=== PATIENT | male | born 1980 | race African-American/Black ===

== ENCOUNTER 2017-04-04 09:47 | Emergency (ER) | payer SELFPAY ==
--- NOTE | 2017-04-04 10:18 | RAD ---
CHEST 2 VIEWS: Date: 04/04/17 HISTORY: Cough and congestion. COMPARISON: 05/13/15. FINDINGS: The cardiac silhouette and pulmonary vasculature are unremarkable. Mediastinum is midline. There is n o confluent air space consolidation, pneumothorax, or pleural fluid evident. IMPRESSION: No active cardiopulmonary abnormalities are demonstrated. POS: [facility]
== END 2017-04-04 10:53 | disposition home or self-care (01) ==
LOC: ERS 09:47
DX: J30.9 Allergic rhinitis, unspecified (principal); Z71.6 Tobacco abuse counseling; F32.9 Major depressive disorder, single episode, unspecified; F17.210 Nicotine dependence, cigarettes, uncomplicated
CPT/HCPCS: 71046; 99406

== ENCOUNTER 2017-04-07 09:14 | Emergency (ER) | payer SELFPAY | END 2017-04-07 09:49 | disposition home or self-care (01) | LOC: ERS 09:14 | DX: R07.81 Pleurodynia (principal); R05 Cough; F32.9 Major depressive disorder, single episode, unspecified; F17.210 Nicotine dependence, cigarettes, uncomplicated | CPT/HCPCS: 93005 ==

== ENCOUNTER 2017-08-17 11:29 | Emergency (ER) | payer SELFPAY ==
[2017-08-17 12:18] LABS: #Eosinphils 0.2 thou/uL (0.0-0.7); #Lymphocytes 1.7 thou/uL (1.20-3.40); #Monocytes 0.6 thou/uL (0.11-0.59); #Neutrophils 3.5 thou/uL (1.40-6.50); %Basophils 0.5 % (0.0-1.0); %Eosinophils 2.9 % (0.0-10.0); %Lymphocytes 28.2 % (21.0-51.0); %Monocytes 9.8 % (0.0-10.0); %Neutrophils 58.7 % (42.0-75.0); Hemoglobin 14.7 g/dL (14.0-18.0); Mean Corpuscular HGB CONC 33.2 g/dL (32.0-36.0); Mean Corpuscular Hemoglobin 30.1 pg (27.0-31.0); Mean Corpuscular Volume 90.6 fl (80.0-94.0); Mean Platelet Volume 7.5 fL (7.4-10.4); Platelet Count 282 thou/uL (130-400); RBC Distribution Width 12.9 % (11.5-14.5); Red Blood Cell (RBC) Count 4.89 mill/uL (4.70-6.10)
--- NOTE | 2017-08-17 12:23 | RAD ---
PA AND LATERAL VIEWS CHEST: Date: 08/17/17 HISTORY: Chest pain. FINDINGS: Comparison made with exam of 04/04/17. The cardiomediastinum is normal. The lungs are expanded and clear. The bony thorax is normal. IMPRESSION: Normal exam. POS: [facility]
[2017-08-17 12:41] LABS: ALT (SGPT) 31 U/L (8-55); AST (SGOT) 29 U/L (5-34); Albumin 4.7 g/dL (3.5-5.0); Alkaline Phosphatase 65 U/L (40-150); Anion Gap 12 mmol/L (10-20); BUN (Urea Nitrogen) 8 mg/dL (8.9-20.6); Bilirubin, Total 0.5 mg/dL (0.2-1.2); CK (CPK) 260 U/L (30-200); Calc. Creatinine Clearance 0 mL/min (70-130); Calcium 9.9 mg/dL (7.8-10.44); Carbon Dioxide 27 mmol/L (22-29); Chloride 104 mmol/L (98-107); Estimated GFR-MDRD 88; Globulin 3.1 g/dL (2.4-3.5); Glucose 80 mg/dL (70-105); Potassium 4.3 mmol/L (3.5-5.1); Protein, Total 7.8 g/dL (6.0-8.3); Sodium 139 mmol/L (136-145)
[2017-08-17 12:45] LABS: CKMB 0.8 ng/mL (0-6.6); Troponin I Less than 0.010 ng/mL (< 0.028)
== END 2017-08-17 13:14 | disposition home or self-care (01) ==
LOC: ERS 11:29
DX: J06.9 Acute upper respiratory infection, unspecified (principal); I10 Essential (primary) hypertension; F32.9 Major depressive disorder, single episode, unspecified; F17.210 Nicotine dependence, cigarettes, uncomplicated
CPT/HCPCS: 36415; 71046; 80053; 82550; 82553; 83880; 84484; 85025; 93005

== ENCOUNTER 2017-11-22 13:03 | Emergency (ER) | payer SELFPAY ==
[2017-11-22 14:10] LABS: #Eosinphils 0.1 thou/uL (0.0-0.7); #Lymphocytes 1.5 thou/uL (1.20-3.40); #Monocytes 0.5 thou/uL (0.11-0.59); #Neutrophils 2.3 thou/uL (1.40-6.50); %Basophils 0.5 % (0.0-1.0); %Eosinophils 1.3 % (0.0-10.0); %Lymphocytes 33.4 % (21.0-51.0); %Monocytes 10.9 % (0.0-10.0); %Neutrophils 53.9 % (42.0-75.0); Hemoglobin 13.5 g/dL (14.0-18.0); Mean Corpuscular HGB CONC 34.2 g/dL (32.0-36.0); Mean Corpuscular Hemoglobin 31.4 pg (27.0-31.0); Mean Corpuscular Volume 91.7 fL (78.0-98.0); Mean Platelet Volume 7.3 fL (7.4-10.4); Platelet Count 280 thou/uL (130-400); RBC Distribution Width 12.8 % (11.5-14.5); Red Blood Cell (RBC) Count 4.31 mill/uL (4.70-6.10); White Blood Cell (WBC) Count 4.3 thou/uL (4.8-10.8)
[2017-11-22 14:34] LABS: ALT (SGPT) 21 U/L (8-55); AST (SGOT) 27 U/L (5-34); Albumin 4.5 g/dL (3.5-5.0); Alkaline Phosphatase 61 U/L (40-150); Anion Gap 16 mmol/L (10-20); BUN (Urea Nitrogen) 7 mg/dL (8.9-20.6); Bilirubin, Total 0.5 mg/dL (0.2-1.2); Calc. Creatinine Clearance 0 mL/min (70-130); Calcium 9.5 mg/dL (7.8-10.44); Carbon Dioxide 24 mmol/L (22-29); Chloride 102 mmol/L (98-107); Estimated GFR-MDRD 79; Glucose 79 mg/dL (70-105); Lipase 64 U/L (8-78); Potassium 4.2 mmol/L (3.5-5.1); Protein, Total 7.5 g/dL (6.0-8.3); Sodium 138 mmol/L (136-145)
[2017-11-22] MEDS ORDERED: Pantoprazole 40 MG VIAL ONE (15:55)
[2017-11-22] MEDS ORDERED: Ketorolac Tromethamine 30 MG/ML VIAL ONE (15:55)
[2017-11-22 16:24] LABS: Bilirubin Negative (Negative); Blood, Urine Negative (Negative); Clarity CLOUDY (Clear); Glucose, Urine (Dipstick) Negative (Negative); Leukocyte Negative (Negative); Nitrite Negative (Negative); Protein, Urine (Dipstick) Trace mg/dL (Neg-Trace); Specific Gravity, Urine 1.021 (1.002-1.036); Urobilinogen 0.2 mg/dL (0.2-1.0)
--- NOTE | 2017-11-22 17:23 | ULT ---
RIGHT UPPER QUADRANT ABDOMINAL ULTRASOUND: 11/22/17 COMPARISON: None. HISTORY: Right upper quadrant abdominal pain. TECHNIQUE: Multiplanar roberto scale and color doppler images were obtained in a right upper quadrant abdominal ult rasound. FINDINGS: The liver is normal in echogenicity without focal lesions or intrahepatic ductal dilatation. The gall bladder is partially contracted. There is a nonshadowing echogenic structure along the gallbladder wa ll which could represent a small polyp. There is no gallbladder wall thickening or pericholecystic fl uid. The common bile duct is normal measuring 4 mm. The visualized portions of the pancreas are unremarkable. The right kidney is normal in echogenicity without hydronephrosis or calculus and measures 10.3 cm in length. IMPRESSION: Possible small gallbladder polyp. POS: [facility]
== END 2017-11-22 17:34 | disposition home or self-care (01) ==
LOC: ERS 13:03
DX: R10.13 Epigastric pain (principal); I10 Essential (primary) hypertension; F32.9 Major depressive disorder, single episode, unspecified; F17.210 Nicotine dependence, cigarettes, uncomplicated
CPT/HCPCS: 36415; 76705; 80053; 81003; 83690; 85025; 96374; 96375; C9113; J1885

== ENCOUNTER 2018-05-17 09:14 | Emergency (ER) | payer SELFPAY ==
[2018-05-17 10:03] LABS: #Lymphocytes 1.5 thou/uL (1.20-3.40); #Monocytes 0.4 thou/uL (0.11-0.59); #Neutrophils 3.2 thou/uL (1.40-6.50); %Basophils 0.9 % (0.0-1.0); %Eosinophils 0.5 % (0.0-10.0); %Lymphocytes 29.4 % (21.0-51.0); %Monocytes 7.3 % (0.0-10.0); Hemoglobin 13.7 g/dL (14.0-18.0); Mean Corpuscular Hemoglobin 30.7 pg (27.0-31.0); Mean Corpuscular Volume 93.1 fL (78.0-98.0); Mean Platelet Volume 7.4 fL (7.4-10.4); Platelet Count 240 thou/uL (130-400); Red Blood Cell (RBC) Count 4.46 mill/uL (4.70-6.10); White Blood Cell (WBC) Count 5.1 thou/uL (4.8-10.8)
[2018-05-17 10:25] LABS: ALT (SGPT) 27 U/L (8-55); AST (SGOT) 27 U/L (5-34); Albumin 4.3 g/dL (3.5-5.0); Alkaline Phosphatase 55 U/L (40-150); Anion Gap 12 mmol/L (10-20); BUN (Urea Nitrogen) 9 mg/dL (8.9-20.6); Bilirubin, Total 0.8 mg/dL (0.2-1.2); Calc. Creatinine Clearance 0 mL/min (70-130); Calcium 9.2 mg/dL (7.8-10.44); Carbon Dioxide 26 mmol/L (22-29); Chloride 106 mmol/L (98-107); Estimated GFR-MDRD Greater than 90; Globulin 2.6 g/dL (2.4-3.5); Glucose 130 mg/dL (70-105); Lipase 35 U/L (8-78); Potassium 3.6 mmol/L (3.5-5.1); Protein, Total 6.9 g/dL (6.0-8.3); Sodium 140 mmol/L (136-145)
[2018-05-17 10:34] LABS: Bilirubin Negative (Negative); Blood, Urine Negative (Negative); Clarity CLEAR (Clear); Glucose, Urine (Dipstick) Negative (Negative); Leukocyte Negative (Negative); Nitrite Negative (Negative); Protein, Urine (Dipstick) Negative (Neg-Trace); Specific Gravity, Urine 1.021 (1.002-1.036); Urobilinogen 0.2 mg/dL (0.2-1.0); pH, Urine 5.5 (5.0-9.0)
[2018-05-17] MEDS ORDERED: Magnesium Citrate 300 ML BOT ONE (10:41)
--- NOTE | 2018-05-17 12:17 | RAD ---
KUB: HISTORY: Abdominal pain. FINDINGS: The bowel gas pattern is nonobstructive. No radiopaque calculi or significant bony findings. IMPRESSION: Unremarkable KUB. POS: [facility]
== END 2018-05-17 12:20 | disposition home or self-care (01) ==
LOC: ERS 09:14
DX: K59.00 Constipation, unspecified (principal); Z71.6 Tobacco abuse counseling; I10 Essential (primary) hypertension; F17.200 Nicotine dependence, unspecified, uncomplicated
CPT/HCPCS: 36415; 74018; 80053; 81003; 83690; 85025; 99406

== ENCOUNTER 2018-05-30 08:07 | Emergency (ER) | payer SELFPAY ==
[2018-05-30] MEDS ORDERED: Ketorolac Tromethamine 60 MG/2 ML VIAL ONE (09:37)
== END 2018-05-30 10:07 | disposition home or self-care (01) ==
LOC: ERS 08:07
DX: S06.0X9A Concussion with loss of consciousness of unspecified duration, initial encounter (principal); I10 Essential (primary) hypertension; F17.210 Nicotine dependence, cigarettes, uncomplicated; W21.03XA Struck by baseball, initial encounter; Y93.64 Activity, baseball
CPT/HCPCS: 96372; J1885

== ENCOUNTER 2018-06-14 13:33 | Emergency (ER) | payer SELFPAY | END 2018-06-14 14:20 | disposition home or self-care (01) | LOC: ERS 13:33 | DX: M79.675 Pain in left toe(s) (principal); F17.210 Nicotine dependence, cigarettes, uncomplicated | CPT/HCPCS: 99281 ==

== ENCOUNTER 2019-05-18 11:24 | Emergency (ER) | payer SELFPAY ==
[2019-05-18] MEDS ORDERED: Ketorolac Tromethamine 30 MG/ML VIAL ONE (12:38)
[2019-05-18] MEDS ORDERED: Dexamethasone 10 MG/ML VIAL ONE (12:38)
[2019-05-18] MEDS ORDERED: Metoclopramide HCl 10 MG/2 ML VIAL ONE (12:38)
== END 2019-05-18 14:25 | disposition home or self-care (01) ==
LOC: ERS 11:24
DX: G43.909 Migraine, unspecified, not intractable, without status migrainosus (principal)
CPT/HCPCS: 96365; 96375; J1100; J1885; J2765

== ENCOUNTER 2019-07-19 09:56 | Emergency (ER) | payer SELFPAY | END 2019-07-19 10:16 | disposition home or self-care (01) | LOC: ERS 09:56 | DX: R05 Cough (principal); F17.200 Nicotine dependence, unspecified, uncomplicated | CPT/HCPCS: 99283 ==

== ENCOUNTER 2019-12-21 12:22 | Emergency (ER) | payer SELFPAY ==
--- NOTE | 2019-12-21 13:21 | RAD ---
LEFT ANKLE 3 VIEWS: HISTORY: Injury left ankle pain FINDINGS: Soft tissue swelling is present. The ankle mortise is maintained. There is a minimally displaced frac ture involving the lateral malleolus..
[2019-12-21] MEDS ORDERED: Naproxen 500 MG TAB ONE (14:01)
== END 2019-12-21 15:15 | disposition home or self-care (01) ==
LOC: ERS 12:22
DX: S82.62XA Displaced fracture of lateral malleolus of left fibula, initial encounter for closed fracture (principal); F17.200 Nicotine dependence, unspecified, uncomplicated; X50.1XXA Overexertion from prolonged static or awkward postures, initial encounter
CPT/HCPCS: 29515

== ENCOUNTER 2020-04-14 16:24 | Emergency (ER) | payer OTHER, SELFPAY ==
[~2020-04-14 16:24] MED LIST: Iopamidol-370 76% 500 ML 1 ML ONE
[2020-04-14 16:51] LABS: #Basophils 0.1 thou/uL (0.0-0.2); #Eosinphils 0.2 thou/uL (0.0-0.7); #Lymphocytes 2.8 thou/uL (1.20-3.40); #Monocytes 0.7 thou/uL (0.11-0.59); #Neutrophils 2.6 thou/uL (1.40-6.50); %Eosinophils 3.8 % (0.0-10.0); %Lymphocytes 43.8 % (21.0-51.0); %Monocytes 11.4 % (0.0-10.0); Hemoglobin 13.1 g/dL (14.0-18.0); Mean Corpuscular Hemoglobin 31.1 pg (27.0-31.0); Mean Corpuscular Volume 94.1 fL (78.0-98.0); Mean Platelet Volume 8.4 fL (7.4-10.4); Platelet Count 255 thou/uL (130-400); RBC Distribution Width 12.9 % (11.5-14.5); Red Blood Cell (RBC) Count 4.22 mill/uL (4.70-6.10); White Blood Cell (WBC) Count 6.4 thou/uL (4.8-10.8)
[2020-04-14 16:57] LABS: INR-International Normal Ratio 0.9; PTT 24.1 sec (22.9-36.1); Prothrombin Time 12.2 sec (12.0-14.7)
[2020-04-14 17:17] LABS: ALT (SGPT) 15 U/L (8-55); AST (SGOT) 16 U/L (5-34); Albumin 4.2 g/dL (3.5-5.0); Alkaline Phosphatase 47 U/L (40-110); Anion Gap 16 mmol/L (10-20); BUN (Urea Nitrogen) 13 mg/dL (8.9-20.6); Bilirubin, Total 0.3 mg/dL (0.2-1.2); Calc. Creatinine Clearance 0 mL/min (70-130); Carbon Dioxide 20 mmol/L (22-29); Chloride 106 mmol/L (98-107); Globulin 2.8 g/dL (2.4-3.5); Glucose 107 mg/dL (70-105); Sodium 138 mmol/L (136-145)
[2020-04-14] MEDS ORDERED: Morphine 4 MG/ML VIAL ONE (17:55)
[2020-04-14] MEDS ORDERED: Ketorolac Tromethamine 30 MG/ML VIAL ONE (17:55)
== END 2020-04-14 19:49 | disposition home or self-care (01) ==
LOC: ERS 16:24
DX: S32.028A Other fracture of second lumbar vertebra, initial encounter for closed fracture (principal); S32.038A Other fracture of third lumbar vertebra, initial encounter for closed fracture; S32.048A Other fracture of fourth lumbar vertebra, initial encounter for closed fracture; S70.12XA Contusion of left thigh, initial encounter; V58.5XXA Driver of pick-up truck or van injured in noncollision transport accident in traffic accident, initial encounter
CPT/HCPCS: 70450; 71045; 71260; 72125; 72170; 74177; 80053; 85025; 85610; 85730; 86850; 86900; 86901; 90471; 96365; 96375; G0390; J1885; J2270; Q9967

== ENCOUNTER 2020-06-12 10:31 | Emergency (ER) | payer SELFPAY ==
[2020-06-12 13:00] LABS: #Eosinphils 0.2 thou/uL (0.0-0.7); #Lymphocytes 1.6 thou/uL (1.20-3.40); #Monocytes 0.6 thou/uL (0.11-0.59); #Neutrophils 3.7 thou/uL (1.40-6.50); %Basophils 0.2 % (0.0-1.0); %Eosinophils 2.6 % (0.0-10.0); %Lymphocytes 26.7 % (21.0-51.0); %Monocytes 9.8 % (0.0-10.0); %Neutrophils 60.7 % (42.0-75.0); Hemoglobin 15.4 g/dL (14.0-18.0); Mean Corpuscular HGB CONC 31.6 g/dL (32.0-36.0); Mean Corpuscular Hemoglobin 30.4 pg (27.0-31.0); Mean Corpuscular Volume 96.4 fL (78.0-98.0); Mean Platelet Volume 7.7 fL (7.4-10.4); Platelet Count 259 thou/uL (130-400); RBC Distribution Width 12.6 % (11.5-14.5); Red Blood Cell (RBC) Count 5.07 mill/uL (4.70-6.10); White Blood Cell (WBC) Count 6.1 thou/uL (4.8-10.8)
[2020-06-12 13:20] LABS: ALT (SGPT) 18 U/L (8-55); AST (SGOT) 18 U/L (5-34); Albumin 4.8 g/dL (3.5-5.0); Alkaline Phosphatase 65 U/L (40-110); Anion Gap 17 mmol/L (10-20); BUN (Urea Nitrogen) 10 mg/dL (8.9-20.6); Bilirubin, Total 0.7 mg/dL (0.2-1.2); Calc. Creatinine Clearance 0 mL/min (70-130); Calcium 9.8 mg/dL (7.8-10.44); Carbon Dioxide 25 mmol/L (22-29); Chloride 101 mmol/L (98-107); Glucose 88 mg/dL (70-105); Lipase 94 U/L (8-78); Protein, Total 7.8 g/dL (6.0-8.3); Sodium 138 mmol/L (136-145)
[2020-06-12] MEDS ORDERED: Famotidine 20 MG TAB ONE (13:40)
[2020-06-12] MEDS ORDERED: Lidocaine Viscous Sol 2% 15 ml UD Cup ONE (13:40)
[2020-06-12] MEDS ORDERED: Mag-Al 1200 mg/1200 mg/30 ML UDCUP ONE (13:40)
== END 2020-06-12 14:20 | disposition home or self-care (01) ==
LOC: ERS 10:31
DX: R10.13 Epigastric pain (principal)
CPT/HCPCS: 36415; 71045; 80053; 83690; 84484; 85025; 93005

== ENCOUNTER 2021-10-27 10:21 | Inpatient (IN) | payer OTHER, SELFPAY ==
[2021-10-27] MEDS ORDERED: Morphine 10 MG/ML VIAL ONE ×2 (10:53→12:30)
[2021-10-27] MEDS ORDERED: Ondansetron PF 4 MG/2 ML Vial ONE (10:53)
[2021-10-27 11:04] LABS: #Basophils 0.1 thou/uL (0.0-0.2); #Lymphocytes 2.4 thou/uL (1.20-3.40); #Monocytes 0.6 thou/uL (0.11-0.59); #Neutrophils 4.2 thou/uL (1.40-6.50); %Basophils 0.9 % (0.0-1.0); %Eosinophils 0.5 % (0.0-10.0); %Lymphocytes 32.6 % (21.0-51.0); %Monocytes 8.5 % (0.0-10.0); %Neutrophils 57.6 % (42.0-75.0); Hemoglobin 13.5 g/dL (14.0-18.0); Mean Corpuscular HGB CONC 34.3 g/dL (32.0-36.0); Mean Corpuscular Hemoglobin 31.9 pg (27.0-31.0); Mean Corpuscular Volume 93.1 fL (78.0-98.0); Mean Platelet Volume 7.7 fL (7.4-10.4); Platelet Count 253 thou/uL (130-400); RBC Distribution Width 12.4 % (11.5-14.5); Red Blood Cell (RBC) Count 4.25 mill/uL (4.70-6.10); White Blood Cell (WBC) Count 7.2 thou/uL (4.8-10.8)
[2021-10-27 11:19] LABS: ALT (SGPT) 29 U/L (8-55); AST (SGOT) 40 U/L (5-34); Albumin 4.7 g/dL (3.5-5.0); Alkaline Phosphatase 77 U/L (40-110); Anion Gap 20 mmol/L (10-20); BUN (Urea Nitrogen) 9 mg/dL (8.9-20.6); Bilirubin, Total 0.8 mg/dL (0.2-1.2); Calc. Creatinine Clearance 0 mL/min (70-130); Calcium 9.9 mg/dL (7.8-10.44); Carbon Dioxide 18 mmol/L (22-29); Chloride 104 mmol/L (98-107); Estimated GFR 73; Globulin 3.4 g/dL (2.4-3.5); Glucose 97 mg/dL (70-105); Potassium 4.8 mmol/L (3.5-5.1); Protein, Total 8.1 g/dL (6.0-8.3); Sodium 137 mmol/L (136-145)
[2021-10-27] MEDS ORDERED: Fentanyl 100 MCG/2 ML VIAL ONE ×2 (14:15→20:37)
[2021-10-27] MEDS ORDERED: Ketorolac Tromethamine 30 MG/ML VIAL ONE (14:15)
[2021-10-27 14:43] LABS: SARS-CoV-2 NAA Rapid Test Not Detected (NotDetected)
[2021-10-27] MEDS ORDERED: Ondansetron PF 4 MG/2 ML Vial IVP PRN (14:46)
[2021-10-27] MEDS ORDERED: Dextrose 50% Abboject 50 ML SYRINGE SLOW IVP PRN (14:46)
[2021-10-27] MEDS ORDERED: Dextrose 5% in Water 1,000 ML IV PRN (14:46)
[2021-10-27] MEDS ORDERED: Sodium Chloride 0.9% 1,000 ML IV SCH (15:00)
[2021-10-27] MEDS ORDERED: Cyclobenzaprine 10 MG TAB ONE (15:19)
[2021-10-27] MEDS ORDERED: CEFAZOLIN IVPB SCH (17:00)
[2021-10-27] MEDS ORDERED: SODIUM CHLORIDE 0.9% IVPB SCH (17:00)
[2021-10-27] MEDS ORDERED: fentaNYL Citrate/PF 100 MCG/2 ML SYRINGE ONE (17:28)
[2021-10-27] MEDS ORDERED: Midazolam HCl 2 mg/2 ml Vial ONE (17:28)
[2021-10-27] MEDS ORDERED: Ketamine 50 MG/ML (10ML VIAL) ONE (17:29)
[2021-10-27] MEDS ORDERED: HYDROmorphone 0.5 MG/0.5 ML SYRINGE ONE (17:29)
[2021-10-27] MEDS ORDERED: Famotidine/PF 20 mg/2ml Vial ONE (17:48)
[2021-10-27] MEDS ORDERED: Sodium Chloride 0.9% 100 ML ONE (18:01)
[2021-10-27] MEDS ORDERED: CEFAZOLIN 2 GM VIAL ONE (18:01)
[2021-10-27] MEDS ORDERED: Glycopyrrolate 0.2 MG/ML 5 ML SYRINGE ONE (18:10)
[2021-10-27] MEDS ORDERED: Dexamethasone 20 MG/5 ML VIAL ONE (18:10)
[2021-10-27] MEDS ORDERED: Succinylcholine 200 MG/10 ml SYRINGE FS ONE (18:10)
[2021-10-27] MEDS ORDERED: Rocuronium Bromide 10 MG/ML (10ML VIAL) ONE (18:10)
[2021-10-27] MEDS ORDERED: PROPOFOL 200 MG/20 ML VIAL ONE (18:10)
[2021-10-27] MEDS ORDERED: Lidocaine 1% PF 5 ML VIAL ONE (18:10)
[2021-10-27] MEDS ORDERED: SUGAMMADEX SODIUM 200 MG/2 ML VIAL ONE (18:58)
[2021-10-27] MEDS: Morphine 4 MG/ML VIAL SLOW IVP PRN (22:20)
[2021-10-27] MEDS: Senokot S 8.6-50 MG TAB PO SCH (22:21)
[2021-10-27] MEDS: Ibuprofen 600 MG TAB PO SCH (22:22)
[2021-10-27] MEDS: Famotidine 20 MG TAB PO SCH (22:23)
[2021-10-27] MEDS: Gabapentin 300 MG CAP PO SCH ×2 (22:23→22:50)
[2021-10-27] MEDS: Acetaminophen 500 MG TAB PO SCH (23:38)
[2021-10-28] MEDS: Morphine 4 MG/ML VIAL SLOW IVP PRN ×2 (00:41→05:15)
[2021-10-28] MEDS: CEFAZOLIN 2 GM in Sodium Chloride 0.9% 100 ML IVPB SCH ×2 (00:42→12:15)
[2021-10-28] MEDS: Acetaminophen 500 MG TAB PO SCH ×5 (00:42→23:56)
[2021-10-28 01:42] VITALS: BMI 29.5
[2021-10-28] MEDS: Ibuprofen 600 MG TAB PO SCH ×2 (05:14→20:04)
[2021-10-28] MEDS ORDERED: tiZANidine HCl 4 MG TAB PO SCH (05:45)
[2021-10-28 06:04] LABS: #Lymphocytes 0.6 thou/uL (1.20-3.40); #Monocytes 0.6 thou/uL (0.11-0.59); #Neutrophils 9.1 thou/uL (1.40-6.50); %Basophils 0.1 % (0.0-1.0); %Lymphocytes 6.1 % (21.0-51.0); %Monocytes 5.8 % (0.0-10.0); Hemoglobin 10.8 g/dL (14.0-18.0); Mean Corpuscular HGB CONC 33.1 g/dL (32.0-36.0); Mean Corpuscular Hemoglobin 32.1 pg (27.0-31.0); Mean Corpuscular Volume 97.1 fL (78.0-98.0); Mean Platelet Volume 8.1 fL (7.4-10.4); Platelet Count 198 thou/uL (130-400); RBC Distribution Width 12.3 % (11.5-14.5); Red Blood Cell (RBC) Count 3.36 mill/uL (4.70-6.10); White Blood Cell (WBC) Count 10.4 thou/uL (4.8-10.8)
[2021-10-28 06:19] LABS: Anion Gap 13 mmol/L (10-20); BUN (Urea Nitrogen) 8 mg/dL (8.9-20.6); Calc. Creatinine Clearance 107 mL/min (70-130); Calcium 8.6 mg/dL (7.8-10.44); Carbon Dioxide 22 mmol/L (22-29); Chloride 103 mmol/L (98-107); Estimated GFR 97; Glucose 116 mg/dL (70-105); Magnesium 1.9 mg/dL (1.6-2.6); Phosphorus 3.5 mg/dL (2.3-4.7); Potassium 4.2 mmol/L (3.5-5.1); Sodium 134 mmol/L (136-145)
[2021-10-28] MEDS ORDERED: PHOS-NAK 1 PKT PACK PO SCH (07:45)
[2021-10-28] MEDS: Polyethylene Glycol 3350 17 GM Packet PO SCH (09:43)
[2021-10-28] MEDS: Gabapentin 300 MG CAP PO SCH ×3 (09:44→21:16)
[2021-10-28] MEDS: traMADol HCl 50 MG TAB PO SCH ×3 (09:45→17:38)
[2021-10-28] MEDS: Senokot S 8.6-50 MG TAB PO SCH ×2 (09:45→21:15)
[2021-10-28] MEDS: Famotidine 20 MG TAB PO SCH ×2 (09:46→21:16)
[2021-10-28] MEDS ORDERED: Ibuprofen 200 MG TAB PO SCH (16:15)
[2021-10-28] MEDS: Ibuprofen 200 MG TAB PO SCH (21:15)
[2021-10-29] MEDS: traMADol HCl 50 MG TAB PO SCH ×4 (02:26→20:52)
[2021-10-29] MEDS: Acetaminophen 500 MG TAB PO SCH ×3 (05:42→17:30)
[2021-10-29] MEDS: Ibuprofen 200 MG TAB PO SCH (05:43)
[2021-10-29 06:40] LABS: #Lymphocytes 1.7 thou/uL (1.20-3.40); #Monocytes 0.7 thou/uL (0.11-0.59); #Neutrophils 4.1 thou/uL (1.40-6.50); %Basophils 0.4 % (0.0-1.0); %Eosinophils 0.5 % (0.0-10.0); %Lymphocytes 25.6 % (21.0-51.0); %Monocytes 10.1 % (0.0-10.0); %Neutrophils 63.4 % (42.0-75.0); Hemoglobin 8.7 g/dL (14.0-18.0); Mean Corpuscular HGB CONC 33.6 g/dL (32.0-36.0); Mean Corpuscular Hemoglobin 33.1 pg (27.0-31.0); Mean Corpuscular Volume 98.5 fL (78.0-98.0); Mean Platelet Volume 8.1 fL (7.4-10.4); Platelet Count 175 thou/uL (130-400); RBC Distribution Width 12.3 % (11.5-14.5); Red Blood Cell (RBC) Count 2.62 mill/uL (4.70-6.10); White Blood Cell (WBC) Count 6.5 thou/uL (4.8-10.8)
[2021-10-29 07:03] LABS: Anion Gap 13 mmol/L (10-20); BUN (Urea Nitrogen) 9 mg/dL (8.9-20.6); Calc. Creatinine Clearance 102 mL/min (70-130); Calcium 8.5 mg/dL (7.8-10.44); Carbon Dioxide 24 mmol/L (22-29); Chloride 104 mmol/L (98-107); Estimated GFR 91; Glucose 126 mg/dL (70-105); Magnesium 1.9 mg/dL (1.6-2.6); Phosphorus 3.3 mg/dL (2.3-4.7); Potassium 3.8 mmol/L (3.5-5.1); Sodium 137 mmol/L (136-145)
[2021-10-29] MEDS ORDERED: PHOS-NAK 1 PKT PACK PO SCH (08:00)
[2021-10-29] MEDS ORDERED: Ibuprofen 200 MG TAB PO PRN (08:13)
[2021-10-29] MEDS: Polyethylene Glycol 3350 17 GM Packet PO SCH (08:24)
[2021-10-29] MEDS: Gabapentin 300 MG CAP PO SCH ×3 (08:24→20:50)
[2021-10-29] MEDS: Famotidine 20 MG TAB PO SCH ×2 (08:25→20:52)
[2021-10-29] MEDS: Senokot S 8.6-50 MG TAB PO SCH ×2 (08:26→20:51)
[2021-10-29] MEDS: Ferrous Sulfate 325 MG TAB PO SCH (09:31)
[2021-10-29] MEDS: Ascorbic Acid 500 mg Chewable Tablet PO SCH (09:31)
[2021-10-29] MEDS ORDERED: Acetaminophen/Codeine 30-300mg Tablet PO PRN (10:44)
[2021-10-29] MEDS ORDERED: Acetaminophen/Codeine 30-300mg Tablet PO SCH (12:00)
[2021-10-29 17:36] LABS: Hemoglobin 8.7 g/dL (14.0-18.0); Mean Corpuscular Hemoglobin 32.2 pg (27.0-31.0); Mean Corpuscular Volume 97.5 fL (78.0-98.0); Mean Platelet Volume 7.7 fL (7.4-10.4); Platelet Count 186 thou/uL (130-400); RBC Distribution Width 12.4 % (11.5-14.5); Red Blood Cell (RBC) Count 2.72 mill/uL (4.70-6.10); White Blood Cell (WBC) Count 7.5 thou/uL (4.8-10.8)
[2021-10-29] MEDS ORDERED: Enoxaparin Sodium 40 MG/0.4 ML SYRINGE SC SCH (18:00)
[2021-10-30] MEDS: tiZANidine HCl 4 MG TAB PO PRN ×2 (00:16→09:17)
[2021-10-30] MEDS: Acetaminophen 500 MG TAB PO SCH ×3 (00:17→12:20)
[2021-10-30] MEDS: traMADol HCl 50 MG TAB PO SCH ×2 (02:58→09:17)
[2021-10-30 05:55] LABS: #Eosinphils 0.1 thou/uL (0.0-0.7); #Lymphocytes 1.9 thou/uL (1.20-3.40); #Monocytes 0.6 thou/uL (0.11-0.59); %Basophils 0.7 % (0.0-1.0); %Eosinophils 1.5 % (0.0-10.0); %Lymphocytes 28.6 % (21.0-51.0); %Monocytes 9.5 % (0.0-10.0); %Neutrophils 59.7 % (42.0-75.0); Hemoglobin 8.6 g/dL (14.0-18.0); Mean Corpuscular HGB CONC 32.4 g/dL (32.0-36.0); Mean Corpuscular Hemoglobin 31.5 pg (27.0-31.0); Mean Corpuscular Volume 97.1 fL (78.0-98.0); Mean Platelet Volume 7.9 fL (7.4-10.4); Platelet Count 201 thou/uL (130-400); RBC Distribution Width 12.3 % (11.5-14.5); Red Blood Cell (RBC) Count 2.73 mill/uL (4.70-6.10); White Blood Cell (WBC) Count 6.6 thou/uL (4.8-10.8)
[2021-10-30 09:13] VITALS: BP 116/78; TEMP 98.1
[2021-10-30] MEDS: Senokot S 8.6-50 MG TAB PO SCH (09:16)
[2021-10-30] MEDS: Polyethylene Glycol 3350 17 GM Packet PO SCH (09:16)
[2021-10-30] MEDS: Ferrous Sulfate 325 MG TAB PO SCH (09:17)
[2021-10-30] MEDS: Ascorbic Acid 500 mg Chewable Tablet PO SCH (09:17)
[2021-10-30] MEDS: Gabapentin 300 MG CAP PO SCH (09:18)
[2021-10-30] MEDS: Famotidine 20 MG TAB PO SCH (09:18)
== END 2021-10-30 13:35 | disposition home or self-care (01) | DRG 481 ==
LOC: ERS 10:21 → SJJU 16:00 → SDC 16:59 → SJJU 21:31
PROVIDERS: ADMIT Surgery; ATTEND Surgery
PROC: 0QS704Z Reposition Left Upper Femur with Internal Fixation Device, Open Approach (ICD-10-PCS; principal; 2021-10-27)
DX: S72.092A Other fracture of head and neck of left femur, initial encounter for closed fracture (principal); D62 Acute posthemorrhagic anemia; F17.210 Nicotine dependence, cigarettes, uncomplicated; Z20.822 Contact with and (suspected) exposure to COVID-19; V80.010A Animal-rider injured by fall from or being thrown from horse in noncollision accident, initial encounter; Y92.9 Unspecified place or not applicable
CPT/HCPCS: 36415; 71045; 72170; 76000; 80048; 80053; 83735; 84100; 85025; 86850; 86900; 86901; 93005; 94640; 96361; 96374; 96375; 96376; C1713; C1769; J0690; J1100; J1170; J1650; J1885; J2250; J2270; J2405; J2704; J3010; J3490; J7050; J7620; S0028; U0002

== ENCOUNTER 2022-09-29 11:21 | Emergency (ER) | payer OTHER, SELFPAY ==
[2022-09-29 13:05] LABS: SARS-CoV-2 NAA Rapid Test Not Detected (NotDetected)
== END 2022-09-29 13:41 | disposition home or self-care (01) ==
LOC: ERS 11:21
DX: J06.9 Acute upper respiratory infection, unspecified (principal); Z20.822 Contact with and (suspected) exposure to COVID-19
CPT/HCPCS: 99283; U0002